=== PATIENT | female | born 1955 | race Caucasian/White ===

== ENCOUNTER 2018-04-03 23:20 | Emergency (ER) | payer OTHER | END 2018-04-04 01:19 | disposition home or self-care (01) | LOC: EDH 23:20 | DX: S01.511A Laceration without foreign body of lip, initial encounter (principal); M54.2 Cervicalgia; R51 Headache; G89.29 Other chronic pain; M54.9 Dorsalgia, unspecified; Z72.0 Tobacco use; W18.39XA Other fall on same level, initial encounter; Y93.89 Activity, other specified; Y92.89 Other specified places as the place of occurrence of the external cause; Y99.8 Other external cause status; M19.90 Unspecified osteoarthritis, unspecified site | CPT/HCPCS: 12011; 70450 ==

== ENCOUNTER 2018-07-11 15:00 | Emergency (ER) | payer OTHER | END 2018-07-11 16:28 | disposition home or self-care (01) | LOC: EDH 15:00 | DX: J40 Bronchitis, not specified as acute or chronic (principal); I10 Essential (primary) hypertension; M19.90 Unspecified osteoarthritis, unspecified site; Z72.0 Tobacco use | CPT/HCPCS: 93005 ==

== ENCOUNTER 2018-07-26 15:06 | Inpatient (IN) | payer OTHER, MEDICARE | END 2018-07-29 19:17 | disposition home or self-care (01) | LOC: EDH 15:06 → EDHIP 18:25 → 4CH 21:07 | PROC: 0NSP04Z Reposition Right Orbit with Internal Fixation Device, Open Approach (ICD-10-PCS; principal; 2018-07-28 10:47) | PROC: 0PSR04Z Reposition Right Thumb Phalanx with Internal Fixation Device, Open Approach (ICD-10-PCS; 2018-07-28 10:47) | DX: S02.80XA Fracture of other specified skull and facial bones, unspecified side, initial encounter for closed fracture (principal); E44.0 Moderate protein-calorie malnutrition; W19.XXXA Unspecified fall, initial encounter; Y92.009 Unspecified place in unspecified non-institutional (private) residence as the place of occurrence of the external cause; S62.619A Displaced fracture of proximal phalanx of unspecified finger, initial encounter for closed fracture; S62.509A Fracture of unspecified phalanx of unspecified thumb, initial encounter for closed fracture; S02.32XA Fracture of orbital floor, left side, initial encounter for closed fracture; S02.2XXA Fracture of nasal bones, initial encounter for closed fracture; F10.10 Alcohol abuse, uncomplicated; S52.021A Displaced fracture of olecranon process without intraarticular extension of right ulna, initial encounter for closed fracture ==

== ENCOUNTER 2019-02-15 19:52 | Emergency (ER) | payer OTHER, MEDICARE ==
[~2019-02-15 19:52] MED LIST: LISI-617 PO; TYL3 PO
[2019-02-15 20:56] LABS: BASOPHILS % (AUTO) 0.9 % (0.0-5.0); EOSINOPHILS % (AUTO) 1.5 % (0.0-8.0); HEMATOCRIT 44.1 % (36-48); LYMPHOCYTES % (AUTO) 40.2 % (21.0-51.0); MEAN CORPUSCULAR HEMOGLOBIN 32.9 pg (27.0-33.0); MEAN CORPUSCULAR VOLUME 93.9 fL (79-99); MONOCYTES % (AUTO) 4.2 % (3.0-13.0); NEUTROPHILS % (AUTO) 53.2 % (40.0-77.0); NUCLEATED RED BLOOD CELLS 0.1 % (0.0-0.19); PLATELET COUNT (AUTO) 159 K/uL (130-400); RED BLOOD CELL COUNT(AUTO) 4.69 MIL/uL (4.00-5.50); RED CELL DISTRIBUTION WIDTH 13.8 % (11.0-15.5); WHITE BLOOD COUNT (AUTO) 8.7 K/uL (4.8-10.8)
[2019-02-15 21:10] LABS: CREATININE 0.4 mg/dL (0.5-1.5); POTASSIUM 3.8 mmol/L (3.5-5.1)
[2019-02-15 21:14] LABS: ALBUMIN 3.9 g/dL (3.5-5.0); BILIRUBIN,TOTAL 0.2 mg/dL (0.2-1.0); TOTAL PROTEIN, SERUM 7.8 g/dL (6.0-8.3)
== END 2019-02-15 22:33 | disposition home or self-care (01) ==
LOC: EDH 19:52
DX: S00.83XA Contusion of other part of head, initial encounter (principal); F10.229 Alcohol dependence with intoxication, unspecified; M19.90 Unspecified osteoarthritis, unspecified site; I10 Essential (primary) hypertension; Z98.890 Other specified postprocedural states; Z86.19 Personal history of other infectious and parasitic diseases; Z72.0 Tobacco use; W18.39XA Other fall on same level, initial encounter; Y93.01 Activity, walking, marching and hiking; Y92.89 Other specified places as the place of occurrence of the external cause; Y99.8 Other external cause status
CPT/HCPCS: 36415; 70450; 72125; 80053; 85025

== ENCOUNTER 2019-09-29 10:50 | Emergency (ER) | payer OTHER, MEDICARE ==
[2019-09-29 11:23] LABS: BASOPHILS % (AUTO) 1.1 % (0.0-5.0); EOSINOPHILS % (AUTO) 2.1 % (0.0-8.0); HEMATOCRIT 42.6 % (36-48); LYMPHOCYTES % (AUTO) 44.9 % (21.0-51.0); MEAN CORPUSCULAR HGB CONC 34.5 g/dL (32.0-36.0); MEAN CORPUSCULAR VOLUME 92.8 fL (79-99); MONOCYTES % (AUTO) 5.7 % (3.0-13.0); NEUTROPHILS % (AUTO) 45.7 % (40.0-77.0); PLATELET COUNT (AUTO) 180 K/uL (130-400); RED BLOOD CELL COUNT(AUTO) 4.59 MIL/uL (4.00-5.50); RED CELL DISTRIBUTION WIDTH 13.9 % (11.0-15.5); WHITE BLOOD COUNT (AUTO) 6.1 K/uL (4.8-10.8)
[2019-09-29 11:48] LABS: INR 0.99 (0.85-1.15); PROTHROMBIN TIME 10.7 SEC (9.6-11.6)
[2019-09-29 11:49] LABS: CREATININE 0.7 mg/dL (0.5-1.5); POTASSIUM 3.8 mmol/L (3.5-5.1)
[2019-09-29 11:55] LABS: ALBUMIN 4.3 g/dL (3.5-5.0); BILIRUBIN,TOTAL 0.3 mg/dL (0.2-1.0); TOTAL PROTEIN, SERUM 7.9 g/dL (6.0-8.3)
[2019-09-29] MEDS ORDERED: LIDOCAINE 5% TOPICAL PATCH TP ONE (12:36)
[2019-09-29 12:56] LABS: PARTIAL THROMBOPLASTIN TIME 25.9 SEC (26.3-35.5)
== END 2019-09-29 13:37 | disposition home or self-care (01) ==
LOC: EDH 10:50
DX: M54.5 Low back pain (principal); F10.129 Alcohol abuse with intoxication, unspecified; I10 Essential (primary) hypertension; Y90.8 Blood alcohol level of 240 mg/100 ml or more; M19.90 Unspecified osteoarthritis, unspecified site; Z87.891 Personal history of nicotine dependence; Z88.2 Allergy status to sulfonamides
CPT/HCPCS: 36415; 80053; 82948; 83690; 85025; 85610; 85730; 99283; G0480

== ENCOUNTER 2019-11-17 14:48 | Emergency (ER) | payer OTHER, MEDICARE ==
[2019-11-17] MEDS ORDERED: OCTYL 2-CYANOACRYLATE 1 EACH TP ONE (15:08)
[2019-11-17] MEDS ORDERED: TETANUS/DIPHTHERIA TOXOID [ADULT] 0.5 ML VIAL IM ONE (15:43)
== END 2019-11-17 16:16 | disposition home or self-care (01) ==
LOC: EDH 14:48
DX: S51.012A Laceration without foreign body of left elbow, initial encounter (principal); F10.10 Alcohol abuse, uncomplicated; I10 Essential (primary) hypertension; M19.90 Unspecified osteoarthritis, unspecified site; Z72.0 Tobacco use; Z88.6 Allergy status to analgesic agent; W18.09XA Striking against other object with subsequent fall, initial encounter; Y92.098 Other place in other non-institutional residence as the place of occurrence of the external cause; Y93.89 Activity, other specified; Y99.8 Other external cause status
CPT/HCPCS: 12032; 73080; 90471; 90714

== ENCOUNTER → 2020-01-08 | Emergency (ER) | payer OTHER, MEDICARE ==
[~2020-01-08] MED LIST changes: +ACETAMINOPHEN 325 MG TAB ONE
[2020-01-08 17:21] LABS: BASOPHILS % (AUTO) 0.7 % (0.0-5.0); EOSINOPHILS % (AUTO) 1.5 % (0.0-8.0); HEMATOCRIT 34.2 % (36-48); LYMPHOCYTES % (AUTO) 45.6 % (21.0-51.0); MEAN CORPUSCULAR HEMOGLOBIN 32.2 pg (27.0-33.0); MEAN CORPUSCULAR HGB CONC 35.4 g/dL (32.0-36.0); MONOCYTES % (AUTO) 6.1 % (3.0-13.0); PLATELET COUNT (AUTO) 154 K/uL (130-400); RED BLOOD CELL COUNT(AUTO) 3.76 MIL/uL (4.00-5.50); RED CELL DISTRIBUTION WIDTH 12.3 % (11.0-15.5); WHITE BLOOD COUNT (AUTO) 9.4 K/uL (4.8-10.8)
[2020-01-08 17:37] LABS: APPEARANCE,URINE Clear (CLEAR); BILIRUBIN,URINE Negative (NEGATIVE); COLOR,URINE Yellow (YELLOW); GLUCOSE, URINE (UA) Negative (NEGATIVE); KETONES,URINE Negative (NEGATIVE); LEUKOCYTE ESTERASE ,URINE Negative (NEGATIVE); NITRATE,URINE Positive (NEGATIVE); OCCULT BLOOD,URINE Negative (NEGATIVE); PH,URINE 5.5 (5.0-8.0); PROTEIN,URINE Negative (NEGATIVE); UROBILINOGEN,URINE 0.2 mg/dL (0.2-1.0)
[2020-01-08 17:50] LABS: CARBON DIOXIDE 24 mmol/L (21-32); CHLORIDE 97 mmol/L (101-111); CREATININE 0.6 mg/dL (0.5-1.5); GLOMERULAR FILTR. RATE CALC 106 mL/min (>60); GLUCOSE,RANDOM 85 mg/dL (70-105); POTASSIUM 3.5 mmol/L (3.5-5.1); SODIUM SERUM 131 mmol/L (136-145); UREA NITROGEN, BLOOD 7 mg/dL (7-18)
[2020-01-08 17:54] LABS: AMPHET/METH SCREEN,URINE NEGATIVE (NEGATIVE); BARBITURATE SCREEN, URINE NEGATIVE (NEGATIVE); BENZODIAZEPINES SCREEN,URINE NEGATIVE (NEGATIVE); CANNABINOID SCREEN,URINE NEGATIVE (NEGATIVE); COCAINE SCREEN,URINE NEGATIVE (NEGATIVE); OPIATE SCREEN,URINE NEGATIVE (NEGATIVE); PHENCYCLIDINE SCREEN,URINE NEGATIVE (NEGATIVE)
[2020-01-08 17:55] LABS: ALANINE AMINOTRANSFERASE 31 U/L (12-78); ALBUMIN 3.8 g/dL (3.5-5.0); ASPARTATE AMINOTRANSFERASE 36 U/L (10-37); BILIRUBIN,TOTAL 0.2 mg/dL (0.2-1.0); SALICYLATE 3.2 mg/dL (2.8-20.0); TOTAL PROTEIN, SERUM 7.1 g/dL (6.0-8.3)
[2020-01-08 17:57] LABS: ACETAMINOPHEN < 1 mcg/mL (10-30)
[2020-01-08 17:58] LABS: ALCOHOL, BLOOD 334 mg/dL (0-10)
[2020-01-08 18:00] LABS: BACTERIA,URINE Few /HPF (None Seen); RBC,URINE 0-1 /HPF (0-1); SQUAMOUS EPITHELIAL CELL,UR Rare /HPF (0-2); WBC,URINE 0-1 /HPF (0-1)
== END ==
LOC: EDH 17:08
DX: F10.129 Alcohol abuse with intoxication, unspecified (principal); R82.71 Bacteriuria; M19.90 Unspecified osteoarthritis, unspecified site; Z88.6 Allergy status to analgesic agent; Z86.19 Personal history of other infectious and parasitic diseases; Z72.0 Tobacco use; Y90.1 Blood alcohol level of 20-39 mg/100 ml
CPT/HCPCS: 36415 ×2; 80053; 80305; 81001; 85025; 87077; 87088; 87186; 99285; G0481

== ENCOUNTER 2020-01-27 15:49 | Emergency (ER) | payer OTHER, MEDICARE ==
[~2020-01-27 15:49] MED LIST changes: -ACETAMINOPHEN 325 MG TAB ONE
[2020-01-27 16:20] LABS: BASOPHILS % (AUTO) 0.7 % (0.0-5.0); EOSINOPHILS % (AUTO) 2.6 % (0.0-8.0); HEMATOCRIT 39.5 % (36-48); MEAN CORPUSCULAR HEMOGLOBIN 31.6 pg (27.0-33.0); MEAN CORPUSCULAR HGB CONC 34.4 g/dL (32.0-36.0); MEAN CORPUSCULAR VOLUME 91.9 fL (79-99); MONOCYTES % (AUTO) 7.7 % (3.0-13.0); NEUTROPHILS % (AUTO) 31.9 % (40.0-77.0); PLATELET COUNT (AUTO) 176 K/uL (130-400); RED CELL DISTRIBUTION WIDTH 13.2 % (11.0-15.5); WHITE BLOOD COUNT (AUTO) 7.7 K/uL (4.8-10.8)
[2020-01-27 16:30] LABS: APPEARANCE,URINE CLEAR (CLEAR); BILIRUBIN,URINE NEGATIVE (NEGATIVE); COLOR,URINE YELLOW (YELLOW); GLUCOSE, URINE (UA) NEGATIVE (NEGATIVE); KETONES,URINE NEGATIVE (NEGATIVE); LEUKOCYTE ESTERASE ,URINE SMALL (NEGATIVE); NITRATE,URINE NEGATIVE (NEGATIVE); OCCULT BLOOD,URINE TRACE-INTACT (NEGATIVE); PROTEIN,URINE 30 mg/dL (NEGATIVE); UROBILINOGEN,URINE 0.2 mg/dL (0.2-1.0)
[2020-01-27 16:39] LABS: AMPHET/METH SCREEN,URINE NEGATIVE (NEGATIVE); BARBITURATE SCREEN, URINE NEGATIVE (NEGATIVE); BENZODIAZEPINES SCREEN,URINE NEGATIVE (NEGATIVE); CANNABINOID SCREEN,URINE NEGATIVE (NEGATIVE); COCAINE SCREEN,URINE NEGATIVE (NEGATIVE); OPIATE SCREEN,URINE NEGATIVE (NEGATIVE); PHENCYCLIDINE SCREEN,URINE NEGATIVE (NEGATIVE)
[2020-01-27 16:40] LABS: CARBON DIOXIDE 28 mmol/L (21-32); CHLORIDE 106 mmol/L (101-111); CREATININE 0.9 mg/dL (0.5-1.5); GLOMERULAR FILTR. RATE CALC 66 mL/min (>60); GLUCOSE,RANDOM 85 mg/dL (70-105); POTASSIUM 3.3 mmol/L (3.5-5.1); SODIUM SERUM 146 mmol/L (136-145); UREA NITROGEN, BLOOD 7 mg/dL (7-18)
[2020-01-27 16:46] LABS: ALANINE AMINOTRANSFERASE 57 U/L (12-78); AMYLASE 48 U/L (25-115); ASPARTATE AMINOTRANSFERASE 72 U/L (10-37); BILIRUBIN,TOTAL 0.2 mg/dL (0.2-1.0); CREATINE KINASE, TOTAL 143 U/L (21-232); LIPASE 151 U/L (114-286); TOTAL PROTEIN, SERUM 7.8 g/dL (6.0-8.3)
[2020-01-27 16:47] LABS: ACETAMINOPHEN < 1 mcg/mL (10-30); SALICYLATE < 2.8 mg/dL (2.8-20.0)
[2020-01-27 16:48] LABS: ALCOHOL, BLOOD 359 mg/dL (0-10)
[2020-01-27] MEDS ORDERED: TRAMADOL HCL 50 MG TABLET ONE (16:56)
[2020-01-27] MEDS ORDERED: THIAMINE HCL 100 MG TABLET ONE (16:56)
[2020-01-27] MEDS ORDERED: POTASSIUM BICARB/CIT AC 25 MEQ TABLET.EFF ONE (16:56)
[2020-01-27 16:59] LABS: SQUAMOUS EPITHELIAL CELL,UR Few /HPF (0-2)
[2020-01-27 17:00] LABS: BACTERIA,URINE Moderate /HPF (None Seen)
[2020-01-27 17:00] LABS: INR 0.97 (0.85-1.15); PARTIAL THROMBOPLASTIN TIME 24.2 SEC (26.3-35.5); PROTHROMBIN TIME 10.5 SEC (9.6-11.6)
== END 2020-01-27 18:14 | disposition home or self-care (01) ==
LOC: EDH 15:49
DX: F10.129 Alcohol abuse with intoxication, unspecified (principal); E87.6 Hypokalemia; I10 Essential (primary) hypertension; M19.90 Unspecified osteoarthritis, unspecified site; Z88.6 Allergy status to analgesic agent; Z86.19 Personal history of other infectious and parasitic diseases; Z72.0 Tobacco use
CPT/HCPCS: 36415; 73630; 80053; 80305; 81001; 82150; 82550; 83690; 84484; 85025; 85610; 85730; 87077; 87088; 87186; 93005; 99285; G0481

== ENCOUNTER 2020-09-05 11:13 | Emergency (ER) | payer OTHER, MEDICARE ==
[~2020-09-05 11:13] MED LIST changes: -LISI-617 PO; +LISI-809 PO
[2020-09-05] MEDS ORDERED: HYDROCODONE/ACETAMINOPHEN 5/325 MG TAB ONE (12:25)
[2020-09-05 12:48] LABS: BASOPHILS % (AUTO) 0.9 % (0.0-5.0); EOSINOPHILS % (AUTO) 1.3 % (0.0-8.0); HEMATOCRIT 39.1 % (36-48); LYMPHOCYTES % (AUTO) 30.5 % (21.0-51.0); MEAN CORPUSCULAR HEMOGLOBIN 32.5 pg (27.0-33.0); MEAN CORPUSCULAR VOLUME 95.6 fL (79-99); MONOCYTES % (AUTO) 4.4 % (3.0-13.0); NEUTROPHILS % (AUTO) 62.7 % (40.0-77.0); PLATELET COUNT (AUTO) 173 K/uL (130-400); RED BLOOD CELL COUNT(AUTO) 4.09 MIL/uL (4.00-5.50); WHITE BLOOD COUNT (AUTO) 9.5 K/uL (4.8-10.8)
[2020-09-05 13:07] LABS: CREATININE 0.7 mg/dL (0.5-1.5); POTASSIUM 3.9 mmol/L (3.5-5.1)
[2020-09-05 13:10] LABS: ALBUMIN 4.4 g/dL (3.5-5.0); BILIRUBIN,TOTAL 0.4 mg/dL (0.2-1.0)
== END 2020-09-05 13:45 | disposition home or self-care (01) ==
LOC: EDH 11:13
DX: M79.661 Pain in right lower leg (principal); M79.662 Pain in left lower leg; I10 Essential (primary) hypertension; M19.90 Unspecified osteoarthritis, unspecified site; F10.10 Alcohol abuse, uncomplicated; Z72.0 Tobacco use; Z86.19 Personal history of other infectious and parasitic diseases; Z88.6 Allergy status to analgesic agent
CPT/HCPCS: 36415; 80053; 82550; 85025

== ENCOUNTER 2020-11-02 13:48 | Observation (INO) | payer OTHER, MEDICARE ==
[~2020-11-02] VITALS: Ht 162.6 cm; Wt 47.6 kg
[2020-11-02] MEDS ORDERED: 0.9%NACL 1000ML 1,000 ML IV ONE (14:30)
[2020-11-02] MEDS ORDERED: ACETAMINOPHEN 500 MG TABLET PO ONE (14:30)
[2020-11-02 15:02] VITALS: BP 95/46
[2020-11-02 15:05] LABS: BASOPHILS % (AUTO) 0.6 % (0.0-5.0); LYMPHOCYTES % (AUTO) 35.4 % (21.0-51.0); MEAN CORPUSCULAR HEMOGLOBIN 32.1 pg (27.0-33.0); MEAN CORPUSCULAR HGB CONC 34.1 g/dL (32.0-36.0); MEAN CORPUSCULAR VOLUME 94.1 fL (79-99); MONOCYTES % (AUTO) 4.4 % (3.0-13.0); NEUTROPHILS % (AUTO) 58.5 % (40.0-77.0); PLATELET COUNT (AUTO) 208 K/uL (130-400); RED BLOOD CELL COUNT(AUTO) 3.93 MIL/uL (4.00-5.50); RED CELL DISTRIBUTION WIDTH 13.2 % (11.0-15.5); WHITE BLOOD COUNT (AUTO) 7.1 K/uL (4.8-10.8)
[2020-11-02 15:12] LABS: APPEARANCE,URINE CLOUDY (CLEAR); BILIRUBIN,URINE NEGATIVE (NEGATIVE); COLOR,URINE YELLOW (YELLOW); GLUCOSE, URINE (UA) NEGATIVE (NEGATIVE); KETONES,URINE 5 mg/dL (NEGATIVE); LEUKOCYTE ESTERASE ,URINE MODERATE (NEGATIVE); NITRATE,URINE NEGATIVE (NEGATIVE); OCCULT BLOOD,URINE TRACE-INTACT (NEGATIVE); PROTEIN,URINE TRACE mg/dL (NEGATIVE); UROBILINOGEN,URINE 0.2 mg/dL (0.2-1.0)
[2020-11-02 15:18] LABS: AMPHET/METH SCREEN,URINE NEGATIVE (NEGATIVE); BARBITURATE SCREEN, URINE NEGATIVE (NEGATIVE); BENZODIAZEPINES SCREEN,URINE POSITIVE (NEGATIVE); CANNABINOID SCREEN,URINE NEGATIVE (NEGATIVE); COCAINE SCREEN,URINE NEGATIVE (NEGATIVE); OPIATE SCREEN,URINE NEGATIVE (NEGATIVE); PHENCYCLIDINE SCREEN,URINE NEGATIVE (NEGATIVE)
[2020-11-02 15:36] LABS: BACTERIA,URINE Few /HPF (None Seen); RBC,URINE 0-1 /HPF (0-1)
[2020-11-02 15:37] LABS: SQUAMOUS EPITHELIAL CELL,UR Moderate /HPF (0-2)
[2020-11-02 15:37] LABS: B-TYPE NATRIURETIC PEPTIDE 79 pg/mL (0-100)
[2020-11-02 15:38] LABS: CRP QUANTITATIVE < 2.00 mg/L (0.00-9.0)
[2020-11-02 15:39] LABS: ALCOHOL, BLOOD 257 mg/dL (0-10)
[2020-11-02 16:00] LABS: CREATININE 0.6 mg/dL (0.5-1.5); POTASSIUM 3.9 mmol/L (3.5-5.1)
[2020-11-02] MEDS ORDERED: CEFTRIAXONE 1G VIAL IVP ONE (16:00)
[2020-11-02 16:05] LABS: ALBUMIN 3.6 g/dL (3.5-5.0); BILIRUBIN,TOTAL 0.3 mg/dL (0.2-1.0); TOTAL PROTEIN, SERUM 6.9 g/dL (6.0-8.3)
[2020-11-02] MEDS ORDERED: POTASSIUM CHLORIDE 20MEQ/100ML 100 ML IV PRN ×2 (16:30)
[2020-11-02] MEDS ORDERED: THIAMINE HCL 100 MG/ML 2ML VIAL IM SCH (16:30)
[2020-11-02] MEDS ORDERED: DIAZEPAM 5 MG TABLET PO PRN (16:30)
[2020-11-02] MEDS ORDERED: DEXTROSE 50%-WATER 50 ML DISP.SYRIN IV PRN (16:30)
[2020-11-02] MEDS ORDERED: DIAZEPAM 5 MG/ML 2 ML SYG IVP ONE (16:30)
[2020-11-02] MEDS ORDERED: HYDRALAZINE 20MG/ML VIAL IV PRN (16:30)
[2020-11-02] MEDS ORDERED: POTASSIUM CHLORIDE 10% ELIXIR 20 MEQ/15 ML UDCUP PO PRN (16:30)
[2020-11-02] MEDS: CEFTRIAXONE 1G VIAL IVP SCH (16:30)
[2020-11-02] MEDS ORDERED: ACETAMINOPHEN 325 MG TAB PO PRN (16:30)
[2020-11-02] MEDS ORDERED: KCL 20 MEQ ERTAB PO PRN (16:30)
[2020-11-02] MEDS ORDERED: LORAZEPAM 2 MG/ML 1 ML VIAL IVP PRN (16:30)
[2020-11-02] MEDS ORDERED: LIDOCAINE HCL-MPF 1% 2ML VIAL IV PRN ×2 (16:30)
[2020-11-02] MEDS ORDERED: LACTULOSE 20 GM/30 ML UDCUP PO PRN (16:30)
[2020-11-02] MEDS ORDERED: ACETAMINOPHEN 650 MG SUPPOSITORY RC PRN (16:30)
[2020-11-02] MEDS ORDERED: GLUCAGON 1MG KIT 1 MG ML IM PRN (16:30)
[2020-11-02] MEDS ORDERED: CLONIDINE HCL 0.1 MG TABLET PO PRN (16:30)
[2020-11-02] MEDS ORDERED: MAGNESIUM 2GM PREMIX 50ML 50 ML IV PRN (16:30)
[2020-11-02] MEDS ORDERED: ONDANSETRON 4MG INJ IVP PRN (16:30)
[2020-11-02] MEDS ORDERED: M.V.I. IV [ADULT] 10 ML, FOLIC ACID 1 MG, THIAMINE HCL 100 MG in 0.9%NACL 1000ML 1,000 ML IV ONE (17:00)
[2020-11-02 17:04] LABS: CREATINE KINASE, TOTAL 139 U/L (21-232); MYOGLOBIN 26 ng/mL (10-92); TROPONIN I < 0.04 ng/mL (0.00-0.06)
[2020-11-02 17:46] VITALS: BP 75/46
[2020-11-02] MEDS: 0.9%NACL 1000ML 1,000 ML IV SCH (18:24)
[2020-11-02 18:52] VITALS: BP 76/41
[2020-11-02 19:53] VITALS: BP 86/64
[2020-11-02 22:22] LABS: CREATINE KINASE, TOTAL 165 U/L (21-232); MYOGLOBIN 43 ng/mL (10-92); TROPONIN I < 0.04 ng/mL (0.00-0.06)
[2020-11-02 22:36] VITALS: BP 88/58
[2020-11-02 23:45] VITALS: BP 95/58
[2020-11-03 00:56] VITALS: BP 95/56
[2020-11-03] MEDS: 0.9%NACL 1000ML 1,000 ML IV SCH ×3 (01:01→16:38)
[2020-11-03 02:20] VITALS: BP 159/81
[2020-11-03 05:24] LABS: HEMATOCRIT 36.1 % (36-48); MEAN CORPUSCULAR HEMOGLOBIN 32.4 pg (27.0-33.0); MEAN CORPUSCULAR HGB CONC 34.1 g/dL (32.0-36.0); RED BLOOD CELL COUNT(AUTO) 3.8 MIL/uL (4.00-5.50); RED CELL DISTRIBUTION WIDTH 12.9 % (11.0-15.5); WHITE BLOOD COUNT (AUTO) 8.4 K/uL (4.8-10.8)
[2020-11-03 05:32] LABS: HEMOGLOBIN A1C 5.3 % (4.0-6.0)
[2020-11-03 05:34] LABS: INR 1.06 (0.85-1.15); PROTHROMBIN TIME 11.5 SEC (9.6-11.6)
[2020-11-03 05:47] LABS: CARBON DIOXIDE 27 mmol/L (21-32); CHLORIDE 106 mmol/L (101-111); CREATINE KINASE, TOTAL 137 U/L (21-232); CREATININE 0.5 mg/dL (0.5-1.5); GLOMERULAR FILTR. RATE CALC 131 mL/min (>60); GLUCOSE,RANDOM 97 mg/dL (70-105); MYOGLOBIN 23 ng/mL (10-92); POTASSIUM 3.6 mmol/L (3.5-5.1); SODIUM SERUM 141 mmol/L (136-145); THYROID STIMULATING HORMONE 0.84 uIU/mL (0.36-3.74); TROPONIN I < 0.04 ng/mL (0.00-0.06); UREA NITROGEN, BLOOD 9 mg/dL (7-18)
[2020-11-03 07:30] VITALS: BP 151/80
[2020-11-03] MEDS ORDERED: M.V.I. IV [ADULT] 10 ML, FOLIC ACID 1 MG, THIAMINE HCL 100 MG in 0.9%NACL 1000ML 1,000 ML IV SCH (09:00)
[2020-11-03] MEDS ORDERED: FOLIC ACID 1 MG TABLET PO SCH (09:00)
[2020-11-03] MEDS ORDERED: THIAMINE HCL 100 MG TABLET PO SCH (09:00)
[2020-11-03] MEDS ORDERED: ENOXAPARIN SODIUM 40 MG/0.4 ML SYRINGE SQ SCH (09:00)
[2020-11-03] MEDS ORDERED: PANTOPRAZOLE 40 MG TAB DR PO SCH (09:00)
[2020-11-03 11:00] VITALS: BP 160/64
[2020-11-03] MEDS: M.V.I. IV [ADULT] 10 ML in 0.9%NACL 1000ML 1,000 ML IV SCH ×2 (12:39→19:06)
[2020-11-03 16:00] VITALS: BP 177/78
[2020-11-03] MEDS: CEFTRIAXONE 1G VIAL IVP SCH (16:34)
[2020-11-03 20:00] VITALS: BP 144/71
[2020-11-04 00:01] VITALS: BP 155/88
[2020-11-04 04:00] VITALS: BP 156/82
[2020-11-04] MEDS: M.V.I. IV [ADULT] 10 ML in 0.9%NACL 1000ML 1,000 ML IV SCH ×2 (04:15→08:00)
[2020-11-04 07:14] VITALS: BP 155/76
[2020-11-04] MEDS ORDERED: NITR100C PO (08:02)
[2020-11-04] MEDS ORDERED: THIA100T91 PO (08:02)
[2020-11-04] MEDS ORDERED: FOLI1 PO (08:02)
== END 2020-11-04 09:30 | disposition home or self-care (01) ==
LOC: EDH 13:48 → EDHIP 16:16 → 3DH 11-03 02:00
PROVIDERS: ADMIT Internal Medicine Critical Care Medicine; ATTEND Internal Medicine Critical Care Medicine
DX: G93.41 Metabolic encephalopathy (principal); R41.82 Altered mental status, unspecified; F10.129 Alcohol abuse with intoxication, unspecified; N39.0 Urinary tract infection, site not specified; J44.9 Chronic obstructive pulmonary disease, unspecified; M06.9 Rheumatoid arthritis, unspecified; R29.6 Repeated falls; Y90.8 Blood alcohol level of 240 mg/100 ml or more
CPT/HCPCS: 36415 ×2; 70450; 71045; 72125; 73070; 80048; 80053; 80305; 81001; 82140; 82550 ×3; 83036; 83735; 83874 ×3; 83880; 84443; 84484 ×4; 85025; 85027; 85610; 86140; 87077; 87088; 87186; 93005; 96361; 96365; 96366 ×3; 96367; 96372 ×2; 96375 ×2; 96376; 99285; G0378 ×41; J0696 ×2; J1650; J3360; J3411 ×2; J3475; J3490; J7030 ×5

== ENCOUNTER 2021-02-20 13:22 | Emergency (ER) | payer OTHER, MEDICARE ==
[~2021-02-20] VITALS: Ht 160 cm; Wt 52.2 kg
[~2021-02-20 13:22] MED LIST changes: +FOLI1 PO; -LISI-809 PO; +LISI5TAB21 PO; +NITR100C PO; +THIA100T91 PO; -TYL3 PO
[2021-02-20 13:26] VITALS: BP 114/68
== END 2021-02-20 14:14 | disposition left against medical advice (07) ==
LOC: EDH 13:22
DX: M79.671 Pain in right foot (principal); Z53.21 Procedure and treatment not carried out due to patient leaving prior to being seen by health care provider

== ENCOUNTER 2021-02-21 13:17 | Emergency (ER) | payer OTHER, MEDICARE ==
[~2021-02-21] VITALS: Ht 149.9 cm; Wt 54.4 kg
[2021-02-21 13:19] VITALS: BP 147/111
[2021-02-21] MEDS ORDERED: ACETAMINOPHEN 500 MG TABLET PO SCH (13:30)
[2021-02-21] MEDS ORDERED: LACTATED RINGERS 1000ML 1,000 ML IV SCH (13:30)
[2021-02-21] MEDS ORDERED: THIAMINE HCL 100 MG/ML 2ML VIAL IVP SCH (13:30)
[2021-02-21 13:54] LABS: BASOPHILS % (AUTO) 0.7 % (0.0-5.0); EOSINOPHILS % (AUTO) 0.6 % (0.0-8.0); HEMATOCRIT 38.3 % (36-48); LYMPHOCYTES % (AUTO) 35.5 % (21.0-51.0); MEAN CORPUSCULAR HEMOGLOBIN 31.2 pg (27.0-33.0); MEAN CORPUSCULAR HGB CONC 34.2 g/dL (32.0-36.0); MEAN CORPUSCULAR VOLUME 91.2 fL (79-99); MONOCYTES % (AUTO) 3.8 % (3.0-13.0); NEUTROPHILS % (AUTO) 59.2 % (40.0-77.0); PLATELET COUNT (AUTO) 200 K/uL (130-400); RED CELL DISTRIBUTION WIDTH 13.6 % (11.0-15.5); WHITE BLOOD COUNT (AUTO) 10.1 K/uL (4.8-10.8)
[2021-02-21 14:25] LABS: CRP QUANTITATIVE < 2.00 mg/L (0.00-9.0)
[2021-02-21 14:26] LABS: ALCOHOL, BLOOD 340 mg/dL (0-10)
[2021-02-21 14:51] LABS: ALBUMIN 4.3 g/dL (3.5-5.0); BILIRUBIN,TOTAL 0.2 mg/dL (0.2-1.0); CREATININE 0.7 mg/dL (0.5-1.5); POTASSIUM 4.8 mmol/L (3.5-5.1); TOTAL PROTEIN, SERUM 8.1 g/dL (6.0-8.3)
[2021-02-21 15:10] LABS: APPEARANCE,URINE Cloudy (CLEAR); BILIRUBIN,URINE Negative (NEGATIVE); COLOR,URINE Yellow (YELLOW); GLUCOSE, URINE (UA) Negative (NEGATIVE); KETONES,URINE Negative (NEGATIVE); LEUKOCYTE ESTERASE ,URINE Small (NEGATIVE); NITRATE,URINE Negative (NEGATIVE); OCCULT BLOOD,URINE Small (NEGATIVE); PROTEIN,URINE Negative (NEGATIVE); UROBILINOGEN,URINE 0.2 mg/dL (0.2-1.0)
[2021-02-21 15:18] LABS: AMPHET/METH SCREEN,URINE NEGATIVE (NEGATIVE); BARBITURATE SCREEN, URINE NEGATIVE (NEGATIVE); BENZODIAZEPINES SCREEN,URINE NEGATIVE (NEGATIVE); CANNABINOID SCREEN,URINE NEGATIVE (NEGATIVE); COCAINE SCREEN,URINE NEGATIVE (NEGATIVE); OPIATE SCREEN,URINE NEGATIVE (NEGATIVE); PHENCYCLIDINE SCREEN,URINE NEGATIVE (NEGATIVE)
[2021-02-21 15:22] LABS: BACTERIA,URINE Few /HPF (None Seen); SQUAMOUS EPITHELIAL CELL,UR Few /HPF (0-2)
[2021-02-22] MEDS ORDERED: M.V.I. IV [ADULT] 10 ML, FOLIC ACID 1 MG, THIAMINE HCL 100 MG in 0.9%NACL 1000ML 1,000 ML IV SCH (09:00)
== END 2021-02-21 15:45 | disposition left against medical advice (07) ==
LOC: EDH 13:17
DX: S90.111A Contusion of right great toe without damage to nail, initial encounter (principal); S00.12XA Contusion of left eyelid and periocular area, initial encounter; G31.2 Degeneration of nervous system due to alcohol; R07.89 Other chest pain; R29.6 Repeated falls; M06.9 Rheumatoid arthritis, unspecified; Z88.5 Allergy status to narcotic agent; Z79.899 Other long term (current) drug therapy; W18.39XA Other fall on same level, initial encounter; Y93.89 Activity, other specified; Y92.89 Other specified places as the place of occurrence of the external cause; Y99.8 Other external cause status
CPT/HCPCS: 36415; 70450; 70486; 71045; 72125; 80053; 80305; 81001; 82550; 84484; 85025; 86140; 93005; J3411; J3490; J7030

== ENCOUNTER → 2021-07-09 | Outpatient (CLI) | payer OTHER, MEDICARE | END | disposition home or self-care (01) | LOC: RAH 12:22 | PROVIDERS: ATTEND Internal Medicine | DX: R91.1 Solitary pulmonary nodule (principal) | CPT/HCPCS: 71250 ==

== ENCOUNTER → 2021-11-21 | Emergency (ER) | payer OTHER, MEDICARE ==
[~2021-11-21] VITALS: Ht 160 cm; Wt 48.1 kg
[~2021-11-21] MED LIST changes: +0.9%NACL 1000ML 1,000 ML IV SCH; +ONDANSETRON 4MG INJ IV ONE; +PENI500T2 PO
[2021-11-21 15:01] LABS: BASOPHILS % (AUTO) 0.7 % (0.0-5.0); EOSINOPHILS % (AUTO) 2.2 % (0.0-8.0); HEMATOCRIT 36.5 % (36-48); LYMPHOCYTES % (AUTO) 50.3 % (21.0-51.0); MEAN CORPUSCULAR HEMOGLOBIN 31.1 pg (27.0-33.0); MEAN CORPUSCULAR HGB CONC 34.8 g/dL (32.0-36.0); MEAN CORPUSCULAR VOLUME 89.2 fL (79-99); MONOCYTES % (AUTO) 6.8 % (3.0-13.0); NEUTROPHILS % (AUTO) 39.9 % (40.0-77.0); PLATELET COUNT (AUTO) 189 K/uL (130-400); RED BLOOD CELL COUNT(AUTO) 4.09 MIL/uL (4.00-5.50); RED CELL DISTRIBUTION WIDTH 13.3 % (11.0-15.5); WHITE BLOOD COUNT (AUTO) 6.9 K/uL (4.8-10.8)
[2021-11-21 15:08] LABS: CREATININE 0.7 mg/dL (0.5-1.5); POTASSIUM 3.7 mmol/L (3.5-5.1)
[2021-11-21 15:13] LABS: ALBUMIN 3.9 g/dL (3.5-5.0); TOTAL PROTEIN, SERUM 7.3 g/dL (6.0-8.3)
[2021-11-21 16:06] VITALS: BP 145/90
== END | disposition home or self-care (01) ==
LOC: EDH 14:41
DX: F10.129 Alcohol abuse with intoxication, unspecified (principal); R11.0 Nausea; T36.8X5A Adverse effect of other systemic antibiotics, initial encounter; M79.605 Pain in left leg; M06.9 Rheumatoid arthritis, unspecified; Z20.822 Contact with and (suspected) exposure to COVID-19; Z88.5 Allergy status to narcotic agent; Y92.89 Other specified places as the place of occurrence of the external cause
CPT/HCPCS: 99283; 96374; 87635; 96361; 80053; 85025; 87804 ×2; 36415; C9803; J2405

== ENCOUNTER → 2022-02-02 | Outpatient (CLI) | payer OTHER, MEDICARE ==
[~2022-02-02] MED LIST changes: -0.9%NACL 1000ML 1,000 ML IV SCH; -ONDANSETRON 4MG INJ IV ONE
== END | disposition home or self-care (01) ==
LOC: RAH 15:19
PROVIDERS: ATTEND Internal Medicine
DX: R91.1 Solitary pulmonary nodule (principal); R59.0 Localized enlarged lymph nodes
CPT/HCPCS: 71250

== ENCOUNTER 2022-08-20 09:55 | Emergency (ER) | payer OTHER, MEDICARE ==
[~2022-08-20] VITALS: Ht 160 cm; Wt 48.1 kg
[2022-08-20] MEDS ORDERED: BENZONATATE 100 MG CAPSULE PO SCH (10:30)
[2022-08-20] MEDS ORDERED: 0.9%NACL 1000ML 1,000 ML IV SCH (10:30)
[2022-08-20] MEDS ORDERED: IPRATROPIUM 0.5 MG/2.5 ML INH IH ONE (10:30)
[2022-08-20] MEDS ORDERED: SOLU-MEDROL 125MG VIAL IVP ONE (10:30)
[2022-08-20 10:39] LABS: BASOPHILS % (AUTO) 0.6 % (0.0-5.0); EOSINOPHILS % (AUTO) 0.9 % (0.0-8.0); LYMPHOCYTES % (AUTO) 34.7 % (21.0-51.0); MEAN CORPUSCULAR HEMOGLOBIN 30.4 pg (27.0-33.0); MEAN CORPUSCULAR HGB CONC 33.8 g/dL (32.0-36.0); MONOCYTES % (AUTO) 9.1 % (3.0-13.0); NEUTROPHILS % (AUTO) 54.4 % (40.0-77.0); PLATELET COUNT (AUTO) 143 K/uL (130-400); RED BLOOD CELL COUNT(AUTO) 4.11 MIL/uL (4.00-5.50); RED CELL DISTRIBUTION WIDTH 13.2 % (11.0-15.5); WHITE BLOOD COUNT (AUTO) 6.7 K/uL (4.8-10.8)
[2022-08-20 10:48] LABS: CREATININE 0.6 mg/dL (0.5-1.5)
[2022-08-20 10:52] LABS: ALBUMIN 3.8 g/dL (3.5-5.0); TOTAL PROTEIN, SERUM 7.4 g/dL (6.0-8.3)
[2022-08-20 11:45] LABS: APPEARANCE,URINE CLEAR (CLEAR); BILIRUBIN,URINE NEGATIVE (NEGATIVE); COLOR,URINE LIGHT-YELLOW (YELLOW); GLUCOSE, URINE (UA) NEGATIVE (NEGATIVE); KETONES,URINE NEGATIVE (NEGATIVE); LEUKOCYTE ESTERASE ,URINE NEGATIVE Leu/uL (NEGATIVE); NITRATE,URINE NEGATIVE (NEGATIVE); OCCULT BLOOD,URINE NEGATIVE (NEGATIVE); PROTEIN,URINE NEGATIVE (NEGATIVE); UROBILINOGEN,URINE 0.2 mg/dL (0.2-1.0)
[2022-08-20] MEDS ORDERED: AUD IH (12:10)
[2022-08-20] MEDS ORDERED: AZIT250T9 PO (12:10)
[2022-08-20] MEDS ORDERED: ALBUHFA IH (12:10)
[2022-08-20] MEDS ORDERED: PRED50TA2 PO (12:10)
[2022-08-20 13:20] VITALS: BP 119/67
== END 2022-08-20 13:35 | disposition home or self-care (01) ==
LOC: EDH 09:55
DX: J44.1 Chronic obstructive pulmonary disease with (acute) exacerbation (principal); I10 Essential (primary) hypertension; Z88.8 Allergy status to other drugs, medicaments and biological substances; Z20.822 Contact with and (suspected) exposure to COVID-19
CPT/HCPCS: 99285; 96374; 96361; 71045; 87635; 84484; 80053; 85025; 87880; 87804 ×2; 81003; 36415; 93005; 94640; C9803; J7030; J2930

== ENCOUNTER → 2022-12-29 | Outpatient (CLI) | payer OTHER, MEDICARE ==
[~2022-12-29] MED LIST changes: +ALBUHFA IH; +AUD IH; +AZIT250T9 PO; +PRED50TA2 PO
== END | disposition home or self-care (01) ==
LOC: RAH 12:29
PROVIDERS: ATTEND Internal Medicine
DX: R91.1 Solitary pulmonary nodule (principal); J44.9 Chronic obstructive pulmonary disease, unspecified; J84.10 Pulmonary fibrosis, unspecified
CPT/HCPCS: 71250

== ENCOUNTER 2023-03-26 16:22 | Emergency (ER) | payer OTHER, MEDICARE ==
[~2023-03-26] VITALS: Ht 160 cm; Wt 48.1 kg
[2023-03-26 17:46] LABS: BASOPHILS # (AUTO) 0.09 K/uL (0.00-0.20); BASOPHILS % (AUTO) 1.3 % (0.0-5.0); EOSINOPHILS # (AUTO) 0.14 K/uL (0.00-0.70); HEMATOCRIT 43.9 % (36-48); IMMATURE GRANULOCYTE ABSOLUTE 0.01 K/uL (0-1); LYMPHOCYTES # (AUTO) 3.5 K/uL (1.0-4.8); LYMPHOCYTES % (AUTO) 49.8 % (21.0-51.0); MEAN CORPUSCULAR HEMOGLOBIN 30.6 pg (27.0-33.0); MEAN CORPUSCULAR HGB CONC 33.7 g/dL (32.0-36.0); MEAN CORPUSCULAR VOLUME 90.9 fL (79-99); MONOCYTES # (AUTO) 0.3 K/uL (0.1-1.0); MONOCYTES % (AUTO) 4.2 % (3.0-13.0); NEUTROPHILS % (AUTO) 42.6 % (40.0-77.0); PLATELET COUNT (AUTO) 209 K/uL (130-400); RED BLOOD CELL COUNT(AUTO) 4.83 MIL/uL (4.00-5.50); RED CELL DISTRIBUTION WIDTH 13.6 % (11.0-15.5); WHITE BLOOD COUNT (AUTO) 7.1 K/uL (4.8-10.8)
[2023-03-26 17:56] LABS: CREATININE 0.6 mg/dL (0.5-1.5); POTASSIUM 4.3 mmol/L (3.5-5.1)
[2023-03-26 18:01] LABS: ALBUMIN 4.4 g/dL (3.5-5.0); BILIRUBIN,TOTAL 0.3 mg/dL (0.2-1.0); TOTAL PROTEIN, SERUM 8.6 g/dL (6.0-8.3)
[2023-03-26 20:21] VITALS: BP 132/70; PULSE 82; RESP 20; O2SAT 96
== END 2023-03-26 20:50 | disposition left against medical advice (07) ==
LOC: EDH 16:22
DX: M54.9 Dorsalgia, unspecified (principal); Z53.21 Procedure and treatment not carried out due to patient leaving prior to being seen by health care provider
CPT/HCPCS: 36415; 72100; 80053; 85025

== ENCOUNTER → 2023-11-29 | Outpatient (CLI) | payer OTHER, MEDICARE | END | disposition home or self-care (01) | LOC: RAH 14:47 | PROVIDERS: ATTEND Internal Medicine | DX: R91.1 Solitary pulmonary nodule (principal); J43.9 Emphysema, unspecified | CPT/HCPCS: 71250 ==

== ENCOUNTER 2024-09-27 13:48 | Emergency (ER) | payer OTHER, MEDICARE ==
[~2024-09-27] VITALS: Ht 162.6 cm; Wt 48.1 kg
--- NOTE | 2024-09-27 14:46 | HMCIMG ---
Exam Type: CT HEAD/BRAIN W/O CONTRAST Clinical Information: fall, + etoh, hematoma Comparison: None CT Dose Index (CTDI): 57.33 mGy Dose Length Product (DLP): 956.79 total mGy-cm Findings: The examination is unremarkable. Galdamez-white matter junction is preserved. No intra or extra axial lesions or fluid collections are seen. Specifically, galdamez and white matter are normal in signal characteristics with normal caliber of ventricles and periventricular cisterns with no evidence of intra or or extra-axial hemorrhage, lacunar infarct, or major territorial infarct, mass, or other abnormality. There are no infarcts. There are no hemorrhages. Periventricular white matter locations are preserved. The orbital contents and structures of the posterior fossa are intact. Impression: Normal CT of the head. This study was performed using dose reduction techniques to include automated exposure control and/or adjustment of the mA and/or kV according to patient size.
--- NOTE | 2024-09-27 15:50 | ERN ---
ED Note History of Present Illness Stated Complaint: FALL Chief Complaint: Mechanical Fall Time Seen by MD: 13:58 Time Seen by Midlevel: 13:59 Dictation: 69-year-old female with a history of arthritis in cholesterol coming in via EMS for fall. Patient states she tripped on her carpet and fell, denies any LOC denies any blood thinners. However patient states she did not have two glasses of vodka. Patient at the time is awake alert and oriented x4. Allergies: Coded Allergies: codeine (Unverified Allergy, Unknown, 01/16/20) Home Meds Active Scripts Prednisone (Prednisone) 50 Mg Tablet, 50 MG PO DAILY for 5 Days, #5 TAB 0 Refills Prov:ALVERTO GONG MD 08/20/22 Azithromycin (Azithromycin) 250 Mg Tablet, 250 MG PO DAILY for 5 Days, #6 TAB 0 Refills Take 2 tablets the first day and then 1 tablet every day for 4 days Prov:ALVERTO GONG MD 08/20/22 Albuterol Sulfate (Ventolin Hfa/Proventil Hfa/Proair Hfa) 90 Mcg/Puff Puff, 90 MCG IH Q4H for shortness of breath, #1 INHALER 0 Refills Prov:ALVERTO GONG MD 08/20/22 Albuterol Sulfate (Albuterol Sulfate) 2.5 Mg/0.5 Ml Vial.neb, 2.5 MG IH Q6H for wheezing/sob, #20 INH 0 Refills Prov:ALVERTO GONG MD 08/20/22 Penicillin V Potassium (Penicillin V Potassium) 500 Mg Tablet, 1 TAB PO QID for 10 Days, #40 TAB 0 Refills Prov:ALVERTO GONG MD 11/21/21 Nitrofurantoin Macrocrystal (Nitrofurantoin) 100 Mg Capsule, 100 MG PO BID for 7 Days, #14 CAP 0 Refills Prov:DELIA JEFFREY APRN 11/04/20 Folic Acid (Folvite) 1 Mg Tab, 1 MG PO ACBKFST for 14 Days, #14 TAB 0 Refills Prov:DELIA JEFFREY APRN 11/04/20 Thiamine HCl (Vitamin B-1) 100 Mg Tablet, 100 MG PO DAILY for 14 Days, #14 TAB 0 Refills Prov:DELIA JEFFREY APRN 11/04/20 Reported Medications Lisinopril (Lisinopril) 5 Mg Tablet, 5 MG PO AM, TAB 07/26/18 Past Medical History Past Medical History: COPD, High Cholesterol, Hypertension Additional Past Medical Hx: RHEUMATOID ARTHRITIS Surgical History: Other Surgical History Other: TUBAL LIGATION. Family History: Negative Social History: ETOH History: Not Applicable Review of System Dictation Constitutional: Negative for fever,chills, and weight loss Eyes: Negative for injury, pain,redness, and discharge ENT: Negative for injury,pain or swelling Cardiovascular: Negative for chest pain, palpitations, and edema Respiratory: Negative for shortness of breath, cough, and wheezing, Abdomen/GI: Negative for abdominal pain, nausea, vomiting, diarrhea, and constipation Back: Negative for injury and pain : Negative for injury, bleeding and discharge MS/Extremity: Negative for injury and deformity Skin: Negative for rash, and discoloration Neuro: Negative for headache, weakness, numbness, tingling, and seizure Psych: Negative for suicide ideation, homicidal ideation, and hallucinations Review of Systems: was completed Initial Vital Sign VS Vital Signs Date Time Temp Pulse Resp B/P (MAP) Pulse Ox O2 Delivery O2 Flow Rate FiO2 09/27/24 13:52 98.2 86 19 129/73 99 Room Air 0 09/27/24 14:05 21 Physical Exam Dictation General: awake, alert, NAD Head/Face: Hematoma noted to the left forehead, Normocephalic, atraumatic Eyes: PERRL, EOMI, vision at baseline ENT: oral cavity clear, TMs clear, no signs of infection Neck: Trachea midline, supple, no nuchal rigidity Cardiovascular: RRR, normal S1/S2, No MRGs, no JVD Respiratory: CTAB, no respiratory distress, No rales or wheezes Abdomen: Soft, non-tender, non-distended, normal bowel sounds, no guarding or rebound. Skin: Warm, dry, normal turgor, no rash MS/Extremity: Pulses equal, no cyanosis, neurovascular intact, FROM Neuro: COAx4, GCS 15, strength 5/5, CN 2-12 intact, normal cerebellar exam, normal gait, Psych: Normal behavior, mood, and affect normal Results (Laboratory/Radiology) Labs Reviewed?: Yes CT Scan Comment: [place] [id number] [place] [id number] IMAGING REPORT Signed PATIENT: FARSHAD RODRIGUEZ MR#: [id number] : 1955 SEX: F AGE: 69 LOCATION: [facility] ORDER 07 STATUS: REG ER REPORT#: [id number] SERVICE 06 REASON: fall, + etoh, hematoma ORDERING PHYSICIAN: YOSEF RG NP PROCEDURE: HEAD WO - CT HEAD/BRAIN W/O CONTRAST Exam Type: CT HEAD/BRAIN W/O CONTRAST Clinical Information: fall, + etoh, hematoma Comparison: None CT Dose Index (CTDI): 57.33 mGy Dose Length Product (DLP): 956.79 total mGy-cm Findings: The examination is unremarkable. Galdamez-white matter junction is preserved. No intra or extra axial lesions or fluid collections are seen. Specifically, galdamez and white matter are normal in signal characteristics with normal caliber of ventricles and periventricular cisterns with no evidence of intra or or extra-axial hemorrhage, lacunar infarct, or major territorial infarct, mass, or other abnormality. There are no infarcts. There are no hemorrhages. Periventricular white matter locations are preserved. The orbital contents and structures of the posterior fossa are intact. Impression: Normal CT of the head. This study was performed using dose reduction techniques to include automated exposure control and/or adjustment of the mA and/or kV according to patient size. DICTATED BY: BRONSON SWANN MD DATE: 09/27/241442 ELECTRONICALLY SIGNED BY: BRONSON SWANN MD DATE: 09/27/241445 ED Course ED Course Orders Procedure Category Date Status Time Ct Head/Brain W/O CT 09/27/24 Resulted Contrast 14:07 Vital Signs Date Time Temp Pulse Resp B/P (MAP) Pulse Ox O2 Delivery O2 Flow Rate FiO2 09/27/24 16:10 97.9 79 19 116/90 99 Room Air* 0 09/27/24 14:05 98.2 86 19 129/73 99 Room Air* 0 09/27/24 13:52 98.2 86 19 129/73 99 Room Air 0 Medical Decision Making MDM MDM: 69-year-old female with a history of arthritis in cholesterol coming in via EMS for fall. Patient states she tripped on her carpet and fell, denies any LOC denies any blood thinners. However patient states she did not have two glasses of vodka. Patient at the time is awake alert and oriented x4. She has can of the head is negative. Explained to the patient that she will be discharged when somebody can pick her up. Differential diagnosis: ICH, subdural hematoma Rationale: Tests considered and ordered secondary to shared decision making include: Previous outside records reviewed: Old ER visits. Risk of complication and/or morbidity or mortality of patient management: None Medications-Per medication reconciliation Need for hospitalization: Patient does not meet criteria for hospitalization. Need for emergency major/minor surgery: No There are no social concerns with this patient. Prescription drug management Prescriptions will include symptomatic care Patient's prior external medical records from other ER visits were reviewed by me as indicated. Prior testing and results from previous visits were reviewed. Prior tests were taken into account with medical decision making and resource utilization, independent historian/historians were used to obtain complete medical history. I independently interpreted the test that were performed, results were reviewed by me and considered findings on radiology if ordered. Medical management and examination interpretation discussions were had by me with other qualified healthcare professionals as indicated for the patient's care. DX & DISP Disposition: Other(Comment) (Eloped) Departure Impression: Primary Impression: Closed head injury Additional Impression: Eloped from emergency department Condition: Stable Referrals: YUDI GUNN MD (PCP) Time of Disposition: 16:42 I have reviewed the case, and I agree with, Diagnosis and Plan YOSEF RG NP Sep 27, 2024 15:49
--- NOTE | 2024-09-27 15:51 | NUR ---
PT STATES SHE WANTS TO GO HOME .SHE WAS INFORMED THAT SOMEONE HAS TO COME TO THE ER FOR HER TO BE PICKED UP HER ALCOHOL LEVELS ARE OVER THE LIMIT. SHE IS WAITING FOR HER 18 YR OLD GRANDSON.
[2024-09-27 16:10] VITALS: BP 116/90; PULSE 79; RESP 19; TEMP 97.8; O2SAT 99
== END 2024-09-27 16:30 | disposition left against medical advice (07) ==
LOC: EDH 13:48
DX: S09.90XA Unspecified injury of head, initial encounter (principal); E78.00 Pure hypercholesterolemia, unspecified; I10 Essential (primary) hypertension; J44.9 Chronic obstructive pulmonary disease, unspecified; Z79.52 Long term (current) use of systemic steroids; Z88.5 Allergy status to narcotic agent; Z98.51 Tubal ligation status; W01.0XXA Fall on same level from slipping, tripping and stumbling without subsequent striking against object, initial encounter; Y93.89 Activity, other specified; Y92.89 Other specified places as the place of occurrence of the external cause; Y99.8 Other external cause status
CPT/HCPCS: 70450; 99284

== ENCOUNTER → 2024-12-25 | Outpatient (CLI) | payer OTHER, MEDICARE ==
[~2024-12-25] MED LIST changes: +GADOTERATE MEGLUMINE 5 MMOL/10 ML VIAL IV ONE
--- NOTE | 2025-01-01 15:56 | HMCIMG ---
INDICATION: Further evaluation for abnormal mammographic finding TECHNIQUE Precontrast axial T1 and axial T2 fat saturation sequences were obtained. Dynamic postcontrast axial imaging were obtained. Subtraction images and MIP reconstructions were generated. COMPARISON Mammogram, ultrasound 11/28/2024 FINDINGS Amount of fibroglandular tissue: Scattered fibroglandular tissue. Background parenchymal enhancement: Mild. Right breast: No suspicious mass or non-mass enhancement. Left breast: 1.7 cm region of linear nonmass enhancement in the left breast upper-outer quadrant, approximately 0.8 cm from the nipple. This is best seen on series 600, image 322. Lymph nodes: Unremarkable. Other tissues: Unremarkable. IMPRESSION Suspicious 1.7 cm region of nonmass enhancement in the left breast upper outer quadrant. Recommend MR guided biopsy, as no mammographic correlate visualized. BI-RADS 4: Suspicious. /[place]
== END | disposition home or self-care (01) ==
LOC: RAH 12:41
PROVIDERS: ATTEND Internal Medicine
DX: R92.323 Mammographic fibroglandular density, bilateral breasts (principal); R92.8 Other abnormal and inconclusive findings on diagnostic imaging of breast
CPT/HCPCS: C8908; A9575; 77049

== ENCOUNTER → 2025-01-21 | Outpatient (CLI) | payer OTHER, MEDICARE ==
[~2025-01-21] MED LIST changes: -GADOTERATE MEGLUMINE 5 MMOL/10 ML VIAL IV ONE
--- NOTE | 2025-01-22 09:38 | HMCIMG ---
Left BREAST ULTRASOUND: Follow-up for MRI of the left breast which demonstrated a 1.7 cm linear nonmass enhancement for ultrasound-guided biopsy. Finding: Real-time examination of the [right/left] breast demonstrates heterogeneous echotexture throughout the breast without evidence of focal solid or cystic masses. IMPRESSION: As lesion seen on MRI is not seen on ultrasound therefore it is not amenable for ultrasound-guided biopsy. I would consider MRI guided biopsy. FINAL ASSESSMENT: ACR: BI-RAD -4. Suspicious: Finding(s) without all the characteristics morphology of breast cancer but indicatingadefine probability of being malignant: biopsy should be considered.
== END | disposition home or self-care (01) ==
LOC: RAH 14:51
PROVIDERS: ATTEND Internal Medicine
DX: R92.8 Other abnormal and inconclusive findings on diagnostic imaging of breast (principal)
CPT/HCPCS: 76641

== ENCOUNTER → 2025-02-25 | Outpatient (CLI) | payer OTHER, MEDICARE ==
--- NOTE | 2025-02-26 00:46 | HMCIMG ---
EXAM: CT Chest Without IV contrast CLINICAL HISTORY: Solitary pulmonary nodule TECHNIQUE: Axial computed tomography images of the chest without intravenous contrast. COMPARISON: None provided. FINDINGS: LUNGS: Bilateral lung hyperinflation with upper lobe predominant paraseptal emphysema. Minimal biapical pleural thickening and subpleural scarring. Subtle subpleural ground-glass opacities with reticular changes in both lower lobes. A 1.4 ??? 1.1 ??? 2.5 cm part-solid spiculated nodule is seen in the right lower lobe anterosuperior segment, with the solid component measuring 1.1 ??? 1.2 ??? 1.8 cm and a surrounding faint ground-glass halo. No additional pulmonary nodules or consolidations. PLEURAL SPACES: No pneumothorax or effusion. MEDIASTINUM AND DIAN: No mediastinal or hilar lymphadenopathy. HEART AND GREAT VESSELS: Normal cardiac size. Mild coronary artery calcification noted. No pericardial effusion. UPPER ABDOMEN: Visualised liver and spleen appear unremarkable. BONES: No acute or aggressive osseous lesion. IMPRESSION: * Part-solid spiculated pulmonary nodule (1.4 ??? 1.1 ??? 2.5 cm) in right lower lobe anterosuperior segment, with solid component measuring 1.1 ??? 1.2 ??? 1.8 cm ??? features suspicious for primary lung malignancy (adenocarcinoma spectrum lesion, Lung-RADS 4B equivalent). * Bilateral upper lobe paraseptal emphysema with subpleural reticulation and ground-glass changes in lower lobes???early fibrotic interstitial change. * Mild coronary artery atherosclerosis. * Radiologic???Clinical Correlation: Recommend PET/CT for metabolic assessment and tissue diagnosis via CT-guided or bronchoscopic biopsy as per ACR Lung-RADS v2022 guidelines. Correlate with risk factors and previous imaging if available. /[place]
== END | disposition home or self-care (01) ==
LOC: RAH 12:56
PROVIDERS: ATTEND Internal Medicine
DX: R91.1 Solitary pulmonary nodule (principal); J43.8 Other emphysema; I25.10 Atherosclerotic heart disease of native coronary artery without angina pectoris; J84.10 Pulmonary fibrosis, unspecified; J98.4 Other disorders of lung
CPT/HCPCS: 71250

== ENCOUNTER → 2025-03-11 | Outpatient (CLI) | payer OTHER, MEDICARE ==
--- NOTE | 2025-03-11 14:23 | HMCIMG ---
Left BREAST ULTRASOUND: CLINICAL HISTORY: Follow-up for MRI the breasts from 12/25/2024. Prior ultrasound from 01/21/2025 is available. CLINICAL HISTORY: Finding: Real-time examination of the [right/left] breast demonstrates homogeneous echotexture throughout the breast without evidence of focal solid or cystic masses. The nipple is inverted IMPRESSION: No mass or cyst identified... MRI demonstrate there is a lesion which I would recommend considering MRI guided biopsy. FINAL ASSESSMENT: ACR: BI-RAD -4. Suspicious Finding.
== END | disposition home or self-care (01) ==
LOC: RAH 09:47
PROVIDERS: ATTEND Internal Medicine Hematology & Oncology
DX: N60.01 Solitary cyst of right breast (principal); N63.20 Unspecified lump in the left breast, unspecified quadrant; R92.8 Other abnormal and inconclusive findings on diagnostic imaging of breast
CPT/HCPCS: 76641